=== PATIENT | male | born 1985 | race Caucasian/White ===

== ENCOUNTER 2016-11-22 10:18 | Emergency (ER) | payer OTHER, MEDICAID ==
[2016-11-22 10:27] VITALS: TEMP 98.2
[2016-11-22] MEDS ORDERED: CYCLOBENZAPRINE 10 MG TAB PO ONE (11:13)
--- NOTE | 2016-11-22 11:40 | EDPHY ---
H & P Time Seen by Provider: 11/22/16 10:58 HPI/ROS: CHIEF COMPLAINT: Acute right paraspinous lumbar back pain HISTORY OF PRESENT ILLNESS: 31-year-old male with history of scoliosis, multiple remote back surgeries including fracture of his hardware, was at work in a in a restaurant bending over and felt immediate right paraspinous back pain "and a snap" with radicular pain into his right lower extremity. No incontinence. No retention. No footdrop. No saddle anesthesia. No urinary abnormality head. No trauma or fall. Pain reproducible with flexion at the waist. The right lower extremity radiculopathy has by enlarged resolved PRIMARY CARE PROVIDER: worker's compensation REVIEW OF SYSTEMS: A ten point review of systems was performed and is negative with the exception of the items mentioned in the HPI PAST MEDICAL & SURGICAL HISTORY: scoliosis with multiple remote back surgery SOCIAL HISTORY: nonsmoker no drug use PHYSICAL EXAM (Prior to examination, patient consented to physical exam, hands were washed and my usual and customary physical exam procedures followed) 1) GENERAL: Well-developed, well-nourished, alert and oriented. Appears uncomfortable if he is flexed at the waist 2) HEAD: Normocephalic, atraumatic 3) HEENT: Pupils equal, round, reactive to light bilaterally. Sclera anicteric. 4) NECK: Full range of motion, no meningeal signs. 5) LUNGS: Clear auscultation bilaterally, no wheezes, no rhonchi, no retractions. 6) HEART: Regular rate and rhythm, no murmur, no heave, no gallop. 7) ABDOMEN: No guarding, no rebound, no focal tenderness, negative McBurney's, negative Rosa's, negative Rovsing's, negative peritoneal sign, 8) MUSCULOSKELETAL: Moving all extremities, no focal areas of tenderness, no obvious trauma. No peripheral edema or discoloration. 9) BACK: Healed surgical incisions noted. Tender to palpation right paraspinous region. l . No CVA tenderness, no midline vertebral tenderness, no fluctuance, no step-off, no obvious trauma, no visual or palpable abnormality. Patella, Achilles reflexes intact to bilateral strength 5/5 10) SKIN: No rash, no petechiae. 11) NEURO: Awake, alert, and oriented to person, place and time. Answers questions appropriately. There were no obvious focal neurologic abnormalities. No cerebellar dysfunction. Normal steady gait. Upper and lower extremities bilaterally with strength 5 / 5, reflexes 2+.. DIFFERENTIAL DIAGNOSIS: In no particular order, including but not limited to, fracture, sprain/strain, cauda equina, spinal infectious etiology. Smoking Status: Current some day smoker Constitutional: Initial Vital Signs Temperature (C) 36.8 C 11/22/16 10:25 Heart Rate 96 11/22/16 10:25 Respiratory Rate 18 11/22/16 10:25 Blood Pressure 148/104 H 11/22/16 10:25 O2 Sat (%) 97 11/22/16 10:25 O2 Delivery Mode Room Air Allergies/Adverse Reactions: No Known Allergies Allergy (Unverified 11/22/16 10:27) Home Medications: Medication Instructions Recorded Cyclobenzaprine [Flexeril 10 MG 10 mg PO TID #15 tab 11/22/16 (RX)] MDM/Departure - MDM Imaging Results: Imaging Impressions Lumbar Spine X-Ray 11/22/16 11:13 Impression: There is a fracture of one of the right dorsal supporting rods. Please see above. Results called to Ezra Farris at 11:49 AM Images reviewed myself Medications Given: Discontinued Medications Cyclobenzaprine HCl (Flexeril) 10 mg PO EDNOW ONE Stop: 11/22/16 11:14 Last Admin: 11/22/16 11:22 Dose: 10 mg ED Course/Re-evaluation: 12:19 p.m.: Patient's pain is controlled. Discussed his imaging results showing a fracture through 1 of his rods. He states that this is a new fracture noting that he has previously fracture with rods anymore cephalad orientation however this appears to be new. He has no neurologic deficits of the lower extremities. Discussed case with primary supervising physician Dr. Hooker in the ER. 1225 p.m.: Phone consultation with Dr. Townsend neurosurgery who recommended CT imaging and follow up in clinic if the patient's pain is controlled which currently is. 12:54 p.m.: Re-evaluation, pain is controlled. He will be discharged. No signs of acute neurologic dysfunction. No weakness. Given usual customary back pain precautions instructions and will follow up with Neurosurgery. As this is a work comp related injury also recommend he contact his worker's compensation provider as well. Informed the patient that I have a Lower index of suspicion for cauda equina, epidural abscess, epidural hematoma, lumbar myositis, diskitis, as the patient is neurologically intact in the lower extremities, has patella and Achilles reflexes intact and equal bilaterally, has no neurologic deficits, no incontinence, no retention, no midline pain, no fluctuance, afebrile, no flulike symptoms. Stressed the importance of follow-up with Neurosurgery - Depart Disposition: Home, Routine, Self-Care Clinical Impression: Fractured vertebral miranda Acute low back pain Qualifiers: Back pain laterality: right Sciatica presence: with sciatica Sciatica laterality: sciatica of right side Qualified Code(s): M54.41 - Lumbago with sciatica, right side Condition: Good Instructions: Low Back Strain (ED) Additional Instructions: Seek medical attention if you develop new or worsening pain, if you develop bladder or bowel dysfunction, numbness around your perineum, foot drop, or any other symptoms that concern you. Stand Alone Forms: Work Comp Follow Up, Work Excuse Prescriptions: Cyclobenzaprine [Flexeril 10 MG (RX)] 10 mg PO TID #15 tab Referrals: Jackson Townsend MD [Medical Doctor] - 11/25/16
[2016-11-22 13:27] VITALS: BP 145/110; PULSE 85; RESP 14; O2SAT 96
== END 2016-11-22 13:16 | disposition home or self-care (01) ==
DX: S32.039A Unspecified fracture of third lumbar vertebra, initial encounter for closed fracture (principal); M54.41 Lumbago with sciatica, right side; F17.200 Nicotine dependence, unspecified, uncomplicated; X58.XXXA Exposure to other specified factors, initial encounter; Y92.511 Restaurant or cafe as the place of occurrence of the external cause; Y99.0 Civilian activity done for income or pay; Y93.89 Activity, other specified

== ENCOUNTER 2016-12-27 10:42 | Emergency (ER) | payer MEDICAID ==
--- NOTE | 2016-12-27 10:52 | EDPHY ---
H & P Stated Complaint: constipation/diarrhea, increased stomach acid, out of flexeril Time Seen by Provider: 12/27/16 10:52 - Personal History Current Tetanus/Diphtheria Vaccine: Unsure Current Tetanus Diphtheria and Acellular Pertussis (TDAP): Unsure - Medical/Surgical History Hx Asthma: No Hx Chronic Respiratory Disease: No Hx Diabetes: No Hx Cardiac Disease: No Hx Renal Disease: No Hx Cirrhosis: No Hx Alcoholism: No Hx HIV/AIDS: No Hx Splenectomy or Spleen Trauma: No Other PMH: back surgeries x 2. - Social History Smoking Status: Current some day smoker Constitutional: Initial Vital Signs Temperature (C) 36.6 C 12/27/16 10:48 Heart Rate 89 12/27/16 10:48 Respiratory Rate 16 12/27/16 10:48 Blood Pressure 172/101 H 12/27/16 10:48 O2 Sat (%) 98 12/27/16 10:48 O2 Delivery Mode Room Air Allergies/Adverse Reactions: fentanyl Allergy (Verified 12/27/16 10:47) Home Medications: Medication Instructions Recorded Cyclobenzaprine [Flexeril 10 MG 10 mg PO TID #15 tab 11/22/16 (RX)] Cyclobenzaprine [Flexeril 10 MG 10 mg PO TID PRN #15 tab 12/27/16 (*)] Pantoprazole Sodium [Protonix] 20 mg PO DAILY #30 tablet. 12/27/16 Medical Decision Making ED Course/Re-evaluation: CHIEF COMPLAINT: Acid reflux, diarrhea, wants more Flexeril HISTORY OF PRESENT ILLNESS: The patient is a 31 y/o male complaining of acid reflux, vomiting, and diarrhea for the last 3 days. He has a history of scoliosis and back surgeries and reports he had "a miranda break in my back a month ago" and has been using Flexeril for pain. Although he saw his neurosurgeon this morning, he was unwilling to write more Flexeril for him and referred him to his PCP. The patient ran out of Flexeril about 2 weeks ago and has been using marijuana edibles to treat his pain instead as he is currently on Medicaid and has difficulty getting into clinics. For the last few days, he's been "throwing up stomach acid" in the mornings, had loose stool, lack of appetite, and occasional mild abdominal cramping. He denies fever, respiratory symptoms, or any other complaints. He is otherwise healthy and notes he has a follow up appointment with Dr. Castillo in 2 weeks. REVIEW OF SYSTEMS: A 10 point review of systems was performed and is negative with the exception of the elements mentioned in the history of present illness. PHYSICAL EXAM: HR, BP, O2 Sat, RR. Temp noted General Appearance: Alert, well hydrated, appropriate, and non-toxic appearing. Head: Atraumatic without scalp tenderness or obvious injury Eyes: Pupils equal, round, reactive to light and accommodation, EOMI, no trauma , no injection. Nose: Atraumatic, no rhinorrhea, clear. Throat: Mucus membranes moist. Neck: Supple, nontender, no lymphadenopathy. Respiratory: No retractions, no distress, no wheezes, and no accessory muscle use. Lungs are clear to auscultation bilaterally. Cardiovascular: Regular rate and rhythm, no murmurs, rubs, or gallops. Good capillary refill all extremities. Gastrointestinal: Abdomen is soft, nontender, non-distended, no masses, no rebound, no guarding, no peritoneal signs. Musculoskeletal: Normal active ROM of all extremities, atraumatic. Neurological: Alert, appropriate, and interactive. The patient has non-focal cranial nerves, motor, sensory, and cerebellar exam. Skin: No rashes, good turgor, no nodules on palpation. Past medical history: Scoliosis Past surgical history: spinal surgeries Family history: noncontributory Social history: Lives in [place]. Medicaid. Uses marijuana edibles for pain management. Neurosurgeon - Dr. Castillo/Kristian DIFFERENTIAL DIAGNOSIS: The differential diagnosis for the patient's nausea and vomiting included but was not limited to gastroenteritis, gastritis, appendicitis, and medication side effect. MEDICAL DECISION MAKING: This is a well-appearing 31 y/o male who presents with a 3-day history of intermittent vomiting, acid reflux, and diarrhea. He is also requesting a refill of his Flexeril due to his limited ability to get into a PCP after his neurosurgeon refused to write a new script. He has a benign abdomen and normal exam. His symptoms are consistent with acid reflux, but could also be related to his increased marijuana use recently. He will be discharged with scripts for Protonix and Flexeril and referral to [facility] for follow up. He is comfortable with this plan. Return precautions given. Departure - Departure Disposition: Home, Routine, Self-Care Clinical Impression: Prescription refill Acid reflux Qualifiers: Esophagitis presence: without esophagitis Qualified Code(s): K21.9 - Gastro- esophageal reflux disease without esophagitis Diarrhea Qualifiers: Diarrhea type: unspecified type Qualified Code(s): R19.7 - Diarrhea, unspecified Condition: Good Instructions: Pantoprazole (By mouth), Gastroesophageal Reflux Disease (ED), Acute Diarrhea (ED) Additional Instructions: 1. Take Flexeril as prescribed for muscle spasm. Follow up with your doctor if you require further refills. You can establish care with [facility] with your Medicaid insurance. 2. Use Protonix as prescribed for acid reflux. Follow up with a primary care provider for unimproved symptoms over the next few days. 3. Follow up with your back specialist as scheduled. 4. Return to the ED for worsening of condition. Referrals: [facility],. [Clinic] - As per Instructions Prescriptions: Cyclobenzaprine [Flexeril 10 MG (*)] 10 mg PO TID PRN #15 tab PRN Reason: Spasms Pantoprazole Sodium [Protonix] 20 mg PO DAILY #30 tablet. Report Scribed for: Connor Hernandez Report Scribed by: Jaquelin Spicer Date of Report: 12/27/16 Time of Report: 10:57
[2016-12-27 11:30] VITALS: BP 145/98; PULSE 68; RESP 14; TEMP 97.2; O2SAT 97
== END 2016-12-27 11:30 | disposition home or self-care (01) ==
DX: Z76.0 Encounter for issue of repeat prescription (principal); K21.9 Gastro-esophageal reflux disease without esophagitis; R19.7 Diarrhea, unspecified; F17.200 Nicotine dependence, unspecified, uncomplicated

== ENCOUNTER → 2017-01-07 | Outpatient (CLI) | payer MEDICAID | LOC: FIMAGING 11:26 | PROVIDERS: ATTEND Neurological Surgery | DX: T84.216A Breakdown (mechanical) of internal fixation device of vertebrae, initial encounter (principal) ==

== ENCOUNTER 2017-01-14 13:04 | Emergency (ER) | payer MEDICAID ==
[2017-01-14 13:22] VITALS: BP 146/104; PULSE 91; RESP 16; TEMP 98.8; O2SAT 95
--- NOTE | 2017-01-14 14:12 | EDPHY ---
H & P Time Seen by Provider: 01/14/17 13:49 HPI/ROS: CHIEF COMPLAINT: Right low back pain HISTORY OF PRESENT ILLNESS: Patient is had spinal surgery in 2012 with revision in 2014 for scoliosis. He has some hardware fracture the last time he broke a miranda in his back was November [address] Castillo from Neurosurgery last week. He presents with right-sided back pain which is been present since he broke the miranda which is typically been helped with Flexeril a single 10 mg pill once a day and he is here requesting prescription as he leaves tomorrow to go back to [place] for a week and then will be able to come back to [place] and have a primary care physician established at that time. REVIEW OF SYSTEMS: Denies fever or chills or weakness or numbness in extremities or incontinence PAST MEDICAL HISTORY: Multiple spine surgery for scoliosis as outlined above Social history: Currently no PCP General Appearance: Alert and conversant, cooperative. No midline or lateral back tenderness to palpation. Patient is ambulatory. 2+ patellar reflexes symmetric and no clonus. Emergency Department course/MDM: Prescription for cyclobenzaprine 10 mg #11. Should last him until he returns on the 22 of January. He is given primary care referral and warned that further Flexeril should be prescribed by them. He does not have signs or symptoms of acute spinal cord or other neurologic compromise at this time. Smoking Status: Current some day smoker Constitutional: Initial Vital Signs Temperature (C) 37.1 C 01/14/17 13:20 Heart Rate 91 01/14/17 13:20 Respiratory Rate 16 01/14/17 13:20 Blood Pressure 146/104 H 01/14/17 13:20 O2 Sat (%) 95 01/14/17 13:20 O2 Delivery Mode Room Air Allergies/Adverse Reactions: fentanyl Allergy (Verified 01/14/17 13:23) Home Medications: Medication Instructions Recorded Cyclobenzaprine [Flexeril] 10 mg PO Q12 PRN #11 tab 01/14/17 Flexeril 01/14/17 Pantoprazole Sodium 01/14/17 MDM/Departure - Depart Disposition: Home, Routine, Self-Care Clinical Impression: Back pain Condition: Good Instructions: Back Pain (ED) Prescriptions: Cyclobenzaprine [Flexeril] 10 mg PO Q12 PRN #11 tab PRN Reason: back pain Referrals: Linden Castillo MD [Medical Doctor] - As per Instructions [facility],. [Clinic] - As per Instructions
== END 2017-01-14 14:19 | disposition home or self-care (01) ==
DX: M54.9 Dorsalgia, unspecified (principal); F17.200 Nicotine dependence, unspecified, uncomplicated